=== PATIENT | male | born 1995 | race Caucasian/White ===

== ENCOUNTER 2017-06-22 16:05 | Emergency (ER) | payer SELFPAY ==
[~2017-06-22] VITALS: Ht 175.3 cm; Wt 93.2 kg
[2017-06-22 19:04] VITALS: BP 118/6
== END 2017-06-22 19:04 | disposition home or self-care (01) ==
LOC: ED 16:05
DX: M62.830 Muscle spasm of back (principal)
CPT/HCPCS: J1100; J1885